=== PATIENT | male | born 1955 | race Caucasian/White ===

== ENCOUNTER 2016-05-26 06:40 | Day surgery (SDC) | payer OTHER ==
[2016-05-18 06:49] LABS: HEMOGLOBIN 14.5 g/dL (13.6-17.8)
[2016-05-18 06:51] LABS: HEMATOCRIT 42.6 % (40.0-51.0)
[2016-05-18 07:05] LABS: BUN (BLOOD UREA NITROGEN) 21 MG/DL (6-23); CALCIUM, SERUM 8.9 MG/DL (8.5-10.4); CHLORIDE, SERUM 107 MMOL/L (96-112); CO2 (CARBON DIOXIDE) 23 MMOL/L (24-34); CREATININE 0.96 MG/DL (0.70-1.30); GFR AFRICAN AMERICAN 99 ML/MIN (>=60); GFR NON AFRICAN AMERICAN 86 ML/MIN (>=60); GLUCOSE, SERUM 152 MG/DL (60-99); POTASSIUM, SERUM 4.5 MMOL/L (3.5-5.3); SODIUM, SERUM 141 MMOL/L (135-148)
--- NOTE | ~2016-05-26 | OP ---
Record Of Operation [facility] [address] [place]. [address] NAME: ESTHER TOBAR : 57 STATUS : REG [facility] PAT#: [id number] AGE: 61 ADM/REG DATE : 05/26/16 MR#: [id number] REPORT SERV DATE: 05/26/16 DICTATED BY: IAN NEWTON DATE: 05/26/16 REPORT STATUS : Draft TRANSCRIBED BY: MODL DATE: 05/26/16 DATE OF PROCEDURE: 05/26/2016 PREOPERATIVE DIAGNOSIS: Oropharyngeal papilloma. POSTOPERATIVE DIAGNOSIS: Oropharyngeal papilloma. PROCEDURE: Wide local excision of the oropharyngeal papilloma. SURGEON: Dr. Ian Newton M.D. ANESTHESIA: General. COMPLICATIONS: None. COUNTS: All counts correct following the procedure. ESTIMATED BLOOD LOSS: Minimal. PREOPERATIVE INFORMED CONSENT: We discussed the risks and benefits of surgery including, but not limited to bleeding, infection, possible recurrence of the papilloma. He understands the risks and benefits of surgery, and consent is on the chart. DESCRIPTION OF PROCEDURE: The patient was brought to the operative suite and placed on operating room table in supine position. General endotracheal anesthesia was initiated without incident. A Camilo-Claudy retractor was inserted in the oral cavity and exposed the oropharynx. Following this, a papillary lesion just to the left of the uvula was removed using curved Metzenbaum scissors. The base of the lesion was cauterized using bipolar cautery. The area was injected with 2 mL of 1% lidocaine and 1:100,000 epinephrine for hemostasis and anesthesia. The specimen was sent for permanent pathology. The patient was awaken from anesthesia, and taken to the recovery room in stable condition. OSBALDO/LAUREN Ian Newton M.D. / [id number] CC: Ruperto Gardner M.D., D.A.B.S.M
[~2016-05-26 06:40] MED LIST: ADVAIR100 INH; GLUCPH; LIPITOR20 PO; VENTOLIN HFA INH
== END 2016-05-26 23:59 | disposition home health service (06) ==
LOC: MSC 06:40
PROVIDERS: Otolaryngology
PROC: 0CBNXZZ Excision of Uvula, External Approach (ICD-10-PCS; principal; 2016-05-26 08:00)
DX: D10.39 Benign neoplasm of other parts of mouth (principal); E11.9 Type 2 diabetes mellitus without complications; G47.33 Obstructive sleep apnea (adult) (pediatric); M19.90 Unspecified osteoarthritis, unspecified site; K21.9 Gastro-esophageal reflux disease without esophagitis; K44.9 Diaphragmatic hernia without obstruction or gangrene; F17.210 Nicotine dependence, cigarettes, uncomplicated; Z99.89 Dependence on other enabling machines and devices; Z90.49 Acquired absence of other specified parts of digestive tract; Z79.84 Long term (current) use of oral hypoglycemic drugs; Z87.81 Personal history of (healed) traumatic fracture; Z86.010 Personal history of colon polyps; Z98.890 Other specified postprocedural states
CPT/HCPCS: 80048; 82962; 85014; 85018; 88304; 93005; A9270-GY; J0690; J2250; J2405; J3010